=== PATIENT | male | born 1940 | race Caucasian/White ===

== ENCOUNTER 2019-09-04 08:47 | Outpatient (CLI) | payer MEDICARE, SELFPAY ==
--- NOTE | ~2019-09-04 | US_ITS ---
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 TECHNIQUE: Multiple grayscale and Doppler ultrasound images of the abdomen were obtained. COMPARISON: Ultrasound 08/29/2018 FINDINGS: The visualized portions of the head, body, and tail of the pancreas are normal. There is a 13 mm cyst in the liver. No liver surface nodularity. The gallbladder is normal in size. There is an 8 mm polyp in the gallbladder fundus. No gallbladder wall thickening or sonographic Wilburn sign. The common duct is normal and measures 6 mm. IMPRESSION: 1. 8 mm polyp in the gallbladder fundus, stable from 08/29/2018. The differential diagnosis includes be nign polyp, adenoma, and small cancer. Abdomen ultrasound is recommended in one year. Reviewed, dictated and finalized at location A. [employer] IMPRESSION: 1. 8 mm polyp in the gallbladder fundus, stable from 08/29/2018. The differential diagnosis includes benign polyp, adenoma, and small cancer. Abdomen ultrasound is recommended in one year.
== END 2019-09-04 08:48 | disposition home or self-care (01) ==
PROVIDERS: Visit Provider Internal Medicine Gastroenterology
DX: K70.30 Alcoholic cirrhosis of liver without ascites (principal); K82.4 Cholesterolosis of gallbladder
CPT/HCPCS: 76705

== ENCOUNTER → 2021-11-16 08:36 | Outpatient (CLI) | payer MEDICARE, SELFPAY ==
--- NOTE | ~2021-11-16 | US_ITS ---
EXAMINATION: US abdomen limited DATE: 11/16/2021 09:56 INDICATION: Cirrhosis TECHNIQUE: Multiple grayscale and Doppler ultrasound images of the abdomen were obtained. COMPARISON: 09/04/2019, 08/29/2018 FINDINGS: The visualized portions of the head, body, and tail of the pancreas are normal. Cysts of th e liver measure up to 1.4 cm in the right hepatic lobe and 1.2 cm in the left hepatic lobe. No surfac e nodularity. Normal hepatopetal flow in the main portal vein. There is no gallbladder wall thickenin g or pericholecystic fluid. A stable 8 mm polyp is present in the gallbladder fundus. The normal comm on bile duct measures 5 mm. There was no sonographic Wilburn sign. IMPRESSION: 1. Stable 8 mm polyp of the gallbladder fundus. Differential as previously described including benign polyp, adenoma, and small cancer. Follow-up ultrasound in one year is recommended. Reviewed, dictated and finalized at location F. IMPRESSION: 1. Stable 8 mm polyp of the gallbladder fundus. Differential as previously desc ribed including benign polyp, adenoma, and small cancer. Follow-up ultrasound i n one year is recommended.
== END ==
PROVIDERS: PCP Internal Medicine Gastroenterology; Visit Provider Internal Medicine Gastroenterology
DX: K70.30 Alcoholic cirrhosis of liver without ascites (principal); K82.4 Cholesterolosis of gallbladder
CPT/HCPCS: 76705

== ENCOUNTER → 2022-04-02 10:01 | Outpatient (CLI) | payer MEDICARE, SELFPAY ==
--- NOTE | ~2022-04-02 | US_ITS ---
EXAMINATION: US abdomen limited DATE: 04/02/2022 10:37 INDICATION: Alcoholic cirrhosis. TECHNIQUE: Multiple grayscale and Doppler ultrasound images of the abdomen were obtained. COMPARISON: Ultrasound 11/16/2021 FINDINGS: The visualized portions of the head, body, and tail of the pancreas are normal. The liver d emonstrates coarsened echotexture and surface nodularity, consistent with cirrhosis. There are cysts in the liver measuring up to 1.2 cm. There is a 1.4 cm hyperechoic mass in the liver. There is normal flow in main portal vein. There is a gallstone in the gallbladder, which is normal in size. No gallb ladder wall thickening or sonographic Wilburn sign. The common duct is normal and measures 4 mm. IMPRESSION: 1. Cirrhosis of the liver. 2. 1.4 cm hyperechoic mass in the liver, which is indeterminate for malignancy. Abdomen MRI without a nd with contrast is recommended. 3. Cholelithiasis. Reviewed, dictated and finalized at location A. IMPRESSION: 1. Cirrhosis of the liver. 2. 1.4 cm hyperechoic mass in the liver, which is indeterminate for malignancy. Abdomen MRI without and with contrast is recommended. 3. Cholelithiasis.
== END ==
LOC: EXPGOSH 10:02 → EXPGOSHRAD 10:40
PROVIDERS: PCP Internal Medicine Gastroenterology; Visit Provider Internal Medicine Gastroenterology
DX: K70.30 Alcoholic cirrhosis of liver without ascites (principal); R16.0 Hepatomegaly, not elsewhere classified; K80.20 Calculus of gallbladder without cholecystitis without obstruction
CPT/HCPCS: 76705

== ENCOUNTER → 2022-04-26 11:21 | Outpatient (CLI) | payer MEDICARE, SELFPAY ==
--- NOTE | ~2022-04-26 | MR_ITS ---
EXAMINATION: MR abdomen wo/w con DATE: 04/26/2022 12:39 INDICATION: Liver mass. 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 TECHNIQUE: Magnetic resonance imaging (MRI) of the abdomen was performed without and with 15 mL Multi Amanda intravenous contrast. COMPARISON: Ultrasound 04/02/2022 FINDINGS: The liver demonstrates a nodular surface contour and hypertrophy of left lateral segment, consistent with cirrhosis. There is no arterial hyperenhancement in the liver. There are cysts in the liver cheng uring up to 10 mm. There is a gallstone in the gallbladder which is normal in size. The spleen is nor mal. There are 2 cystic lesions in the pancreas with the larger measuring 8 mm, most likely pseudocys ts. The adrenal glands are normal. There are peripelvic cysts in the kidneys. There are no dilated lo ops of bowel. There are no pathologically enlarged lymph nodes. There is no free intraperitoneal flui d. IMPRESSION: 1. Benign cysts in the liver. 2. Cirrhosis of the liver. Reviewed, dictated and finalized at location B.
== END ==
PROVIDERS: PCP Internal Medicine Endocrinology, Diabetes & Metabolism; Visit Provider Internal Medicine Gastroenterology
DX: K70.30 Alcoholic cirrhosis of liver without ascites (principal); K76.89 Other specified diseases of liver
CPT/HCPCS: 74183; A9577

== ENCOUNTER 2022-10-25 10:08 | Outpatient (CLI) | payer MEDICARE, SELFPAY ==
[2022-10-26 10:21] LABS: Kit Draw Collected
== END 2022-10-25 10:09 | disposition home or self-care (01) ==
LOC: ANHGOSHLAB 10:14
PROVIDERS: PCP Internal Medicine Endocrinology, Diabetes & Metabolism; Visit Provider Internal Medicine Endocrinology, Diabetes & Metabolism
DX: E87.6 Hypokalemia (principal)
CPT/HCPCS: 36415

== ENCOUNTER 2023-11-23 09:55 | Outpatient (CLI) | payer MEDICARE, SELFPAY ==
--- NOTE | ~2023-11-23 | US_ITS ---
EXAMINATION: US abdomen limited DATE: 11/23/2023 10:17 INDICATION: Liver lesion. Cirrhosis. TECHNIQUE: Multiple grayscale and Doppler ultrasound images of the abdomen were obtained. COMPARISON: Abdomen MRI 04/26/2022 FINDINGS: The visualized portions of the head and body of the pancreas are normal. The liver demonstr ates surface nodularity, consistent with cirrhosis. There are 11 mm and 7 mm cysts in the liver. Ther e is normal flow in main portal vein. The gallbladder is normal in size. There is a gallstone in the gallbladder. No gallbladder wall thickening. There is no sonographic Wilburn's sign. The common duct i s normal and measures 5 mm. IMPRESSION: 1. Cirrhosis of the liver. 2. Cholelithiasis. Reviewed, dictated and finalized at location A.
== END 2023-11-23 09:56 ==
LOC: GOSHIMG 09:57
PROVIDERS: PCP Internal Medicine Endocrinology, Diabetes & Metabolism; Visit Provider Internal Medicine Gastroenterology
DX: K76.9 Liver disease, unspecified (principal); K70.30 Alcoholic cirrhosis of liver without ascites; K80.20 Calculus of gallbladder without cholecystitis without obstruction
CPT/HCPCS: 76705